=== PATIENT | male | born 2000 | race Caucasian/White ===

== ENCOUNTER 2022-04-10 00:50 | Emergency (ER) | payer SELFPAY ==
[~2022-04-10] VITALS: Ht 175.3 cm; Wt 70.9 kg
[2022-04-10 00:56] VITALS: TEMP 97
[2022-04-10 03:00] VITALS: BP 105/78; PULSE 67
== END 2022-04-10 03:30 | disposition home or self-care (01) ==
LOC: COL.ER 00:50
DX: S01.01XA Laceration without foreign body of scalp, initial encounter (principal); F10.129 Alcohol abuse with intoxication, unspecified; Z28.310 Unvaccinated for COVID-19; V00.141A Fall from scooter (nonmotorized), initial encounter